=== PATIENT | female | born 1935 | race Caucasian/White ===

== ENCOUNTER 2018-02-28 08:58 | Observation (INO) ==
[2018-02-28] MEDS ORDERED: ENOXAPARIN 80 MG/0.8 ML SYRINGE SUBCUT STA (09:25)
[2018-02-28 09:28] LABS: Basophils # 0.1 10*3/uL (0.0-0.2); Basophils % 1.1 % (0.0-0.8); Eosinophils # 0.3 10*3/uL (0.0-0.87); Eosinophils % 5.4 % (0.00-10.9); Hematocrit 39.8 VOL% (35.7-47.0); Hemoglobin 13.3 GM/DL (12.0-16.0); Immature Granulocytes % 0.5 %; Immature Granulocytes Absolute 0.03 #; Lymphocytes # 1.1 10*3/uL (1.4-4.0); Lymphocytes % 18.7 % (21.3-54.2); Mean Corpuscular HGB Conc 33.4 GM/DL (32-36); Mean Corpuscular Hemoglobin 30 PG (27-34); Mean Corpuscular Volume 89.6 FL (87-102); Mean Platelet Volume 12.3 FL (9.6-12.0); Monocytes # 0.7 10*3/uL (0.11-0.8); Monocytes % 11.3 % (1.7-12.7); Neutrophils # 3.8 10*3/uL (1.4-7.4); Platelet Count 158 T/CUMM (130-400); Red Blood Count 4.44 MC/CUMM (3.8-5.5); Red Cell Distribution Width 14.3 % (9.3-17.3); White Blood Count 6.1 T/CUMM (4-12)
[2018-02-28 09:34] LABS: Partial Thromboplastin Time 22.2 SECS (0-40)
[2018-02-28 09:42] LABS: Alanine Aminotransferase 22 U/L (13-56); Albumin 3.5 G/DL (3.4-5.0); Alkaline Phosphatase 57 U/L (45-117); Aspartate Amino Transferase 14 U/L (0-37); Blood Urea Nitrogen 25 MG/DL (7-18); Calcium 10.5 MG/DL (8.5-10.1); Glucose 112 MG/DL (74-106); Potassium 3.5 MMOL/L (3.5-5.1); Sodium 143 MMOL/L (136-145); Total Protein 6.7 G/DL (6.4-8.3); Troponin I Only < 0.015 NG/ML (0.00-0.045)
[2018-02-28 10:09] LABS: Apearance,Urine CLEAR (Clear); Bilirubin,Urine Negative (Negative); Blood, Urine Negative (Negative); Glucose,Urine (UA) Negative (Negative); Ketones,Urine Negative (Negative); Nitrite,Urine Negative (Negative); Protein,Urine Negative; RBC,Urine <1 /HPF (0-4); Squamous Epithelial Cell,Urine Occasional /HPF (0-10); Urine Color Yellow (Yellow); Urine Specific Gravity 1.009 (1.001-1.035); Urine Urobilinogen < 2.0 EU/DL (0.2-1.0); WBC,Urine <1 /HPF (0-6)
[2018-02-28 10:13] LABS: Barbiturates Screen,Urine Negative (Negative); Benzodiazepines Screen,Urine Negative (Negative); Cannabinoid Screen,Urine Negative (Negative); Opiate Screen,Urine Negative (Negative); Phencyclidine Screen,Urine Negative (Negative)
[2018-02-28] MEDS ORDERED: ONDANSETRON 4 MG/2 ML VIAL IV PRN (10:44)
[2018-02-28] MEDS ORDERED: ACETAMINOPHEN 325 MG TABLET PO PRN (10:44)
[2018-02-28] MEDS: WARFARIN 5 MG TABLET PO SCH (18:03)
[2018-02-28] MEDS ORDERED: cloNIDine 0.1 MG TABLET PO SCH (21:00)
[2018-02-28] MEDS: SOTALOL 80 MG TABLET PO SCH (22:05)
[2018-02-28] MEDS: ATORVASTATIN 20 MG TABLET PO SCH (22:07)
[2018-02-28] MEDS: LOSARTAN 50 MG TABLET PO SCH (22:07)
[2018-03-01 04:39] LABS: Basophils # 0.1 10*3/uL (0.0-0.2); Basophils % 1.1 % (0.0-0.8); Eosinophils # 0.3 10*3/uL (0.0-0.87); Eosinophils % 6.6 % (0.00-10.9); Hematocrit 35.9 VOL% (35.7-47.0); Hemoglobin 11.9 GM/DL (12.0-16.0); INR 1.1; Immature Granulocytes % 0.2 %; Immature Granulocytes Absolute 0.01 #; Lymphocytes # 1.1 10*3/uL (1.4-4.0); Lymphocytes % 24.9 % (21.3-54.2); Mean Corpuscular HGB Conc 33.1 GM/DL (32-36); Mean Corpuscular Hemoglobin 30 PG (27-34); Mean Platelet Volume 12.4 FL (9.6-12.0); Monocytes # 0.7 10*3/uL (0.11-0.8); Monocytes % 15.7 % (1.7-12.7); Neutrophils # 2.3 10*3/uL (1.4-7.4); Neutrophils % 51.5 % (38.7-73.9); PT Patient Result 11.4 SECS; Platelet Count 145 T/CUMM (130-400); Red Blood Count 3.99 MC/CUMM (3.8-5.5); Red Cell Distribution Width 14.3 % (9.3-17.3); White Blood Count 4.5 T/CUMM (4-12)
[2018-03-01 05:12] LABS: Eosinophils 9 % (0-10); Hypochromasia 1+; Lymphocytes 30 % (20-55); Platelet Estimate Normal; Segmented Neutrophils 47 % (50-85); Total Cells Counted 100
[2018-03-01 05:22] LABS: Calcium 9.6 MG/DL (8.5-10.1); Osmolality,Calculated 290.7 MOS/KG (273-304); Thyroid Stimulating Hormone 1.89 uIU/ml (0.358-3.74)
[2018-03-01] MEDS ORDERED: MAGNESIUM SULF RIDER 4 GM in PREMIX 1 EACH IV PRN (07:13)
[2018-03-01] MEDS ORDERED: MAGNESIUM SULF RIDER 2 GM in PREMIX 1 EACH IV PRN (07:13)
[2018-03-01] MEDS: SOTALOL 80 MG TABLET PO SCH ×2 (09:05→21:43)
[2018-03-01] MEDS: ASPIRIN CHEW 81 MG TABLET PO SCH (09:06)
[2018-03-01] MEDS: hydroCHLOROthiazide 25 MG TABLET PO SCH (09:06)
[2018-03-01] MEDS: ATORVASTATIN 20 MG TABLET PO SCH (09:06)
[2018-03-01] MEDS: LOSARTAN 50 MG TABLET PO SCH ×2 (09:06→21:44)
[2018-03-01] MEDS: PANTOPRAZOLE 40 MG TABLET PO SCH (09:06)
[2018-03-01] MEDS: POTASSIUM CHLORIDE 20 MEQ TABLET PO PRN ×4 (09:06→15:12)
[2018-03-01] MEDS: WARFARIN 5 MG TABLET PO SCH (17:39)
[2018-03-02 05:58] LABS: Calcium 9.2 MG/DL (8.5-10.1); Osmolality,Calculated 292.7 MOS/KG (273-304)
[2018-03-02] MEDS: ATORVASTATIN 20 MG TABLET PO SCH (08:16)
[2018-03-02] MEDS: PANTOPRAZOLE 40 MG TABLET PO SCH (08:16)
[2018-03-02] MEDS: hydroCHLOROthiazide 25 MG TABLET PO SCH (08:16)
[2018-03-02] MEDS: SOTALOL 80 MG TABLET PO SCH (08:16)
[2018-03-02] MEDS: LOSARTAN 50 MG TABLET PO SCH (08:16)
[2018-03-02] MEDS: ASPIRIN CHEW 81 MG TABLET PO SCH (08:16)
[2018-03-02 11:54] VITALS: BP 137/66
[2018-03-03] MEDS ORDERED: WARFARIN 7.5 MG TABLET PO SCH (18:00)
== END 2018-03-02 12:23 | disposition home or self-care (01) ==
LOC: EDBD → EDUNIT# → N.EDINP 08:58 → N.ED 08:58 → N.2E 11:36
PROVIDERS: ADMIT Internal Medicine; ATTEND Internal Medicine

== ENCOUNTER 2019-07-07 11:14 | Observation (INO) ==
[2019-07-07 12:35] LABS: Basophils % 0.7 % (0.0-0.8); Eosinophils # 0.2 10*3/uL (0.0-0.87); Eosinophils % 3.5 % (0.00-10.9); Hemoglobin 14.4 GM/DL (12.0-16.0); Immature Granulocytes % 0.6 %; Immature Granulocytes Absolute 0.03 #; Lymphocytes # 1.3 10*3/uL (1.4-4.0); Mean Corpuscular HGB Conc 32.7 GM/DL (32-36); Mean Corpuscular Volume 91.3 FL (87-102); Monocytes % 11.5 % (1.7-12.7); Neutrophils % 59.7 % (38.7-73.9); Platelet Count 166 T/CUMM (130-400); Red Blood Count 4.82 MC/CUMM (3.8-5.5); Red Cell Distribution Width 14.2 % (9.3-17.3); White Blood Count 5.4 T/CUMM (4-12)
[2019-07-07 12:45] LABS: Partial Thromboplastin Time 33.8 SECS (20.8-36.0)
[2019-07-07 12:50] LABS: INR 2.1
[2019-07-07 12:52] LABS: PT Patient Result 22.9 SECS (9.6-12.2)
[2019-07-07 12:59] LABS: Albumin 3.6 G/DL (3.4-5.0); Bilirubin,Total 0.6 MG/DL (0.2-1.0); Calcium 9.5 MG/DL (8.5-10.1); Osmolality,Calculated 288.1 MOS/KG (273-304)
[2019-07-07] MEDS ORDERED: ACETAMINOPHEN 325 MG TABLET PO PRN (14:01)
[2019-07-07] MEDS ORDERED: ONDANSETRON 4 MG/2 ML VIAL IV PRN (14:01)
[2019-07-07] MEDS: SODIUM CHLORIDE 0.45% 1,000 ML IV SCH (15:30)
[2019-07-07] MEDS: SOTALOL 80 MG TABLET PO SCH ×2 (17:35)
[2019-07-07] MEDS: LOSARTAN 50 MG TABLET PO SCH ×2 (17:35→17:39)
[2019-07-07] MEDS: cloNIDine 0.1 MG TABLET PO SCH (17:38)
[2019-07-07] MEDS ORDERED: WARFARIN 7.5 MG TABLET PO SCH (18:00)
[2019-07-07] MEDS ORDERED: ASPIRIN CHEW 81 MG TABLET PO SCH (18:00)
[2019-07-07] MEDS: RANITIDINE 150 MG TABLET PO SCH (18:34)
[2019-07-08] MEDS: SOTALOL 80 MG TABLET PO SCH (06:51)
[2019-07-08] MEDS: cloNIDine 0.1 MG TABLET PO SCH (06:51)
[2019-07-08] MEDS: RANITIDINE 150 MG TABLET PO SCH (06:51)
[2019-07-08] MEDS: LOSARTAN 50 MG TABLET PO SCH (06:52)
[2019-07-08] MEDS: SODIUM CHLORIDE 0.45% 1,000 ML IV SCH (07:18)
[2019-07-08] MEDS ORDERED: hydroCHLOROthiazide 25 MG TABLET PO SCH (09:00)
[2019-07-08] MEDS ORDERED: MAGNESIUM GLUCONATE 500 MG TABLET PO SCH (09:00)
[2019-07-08] MEDS ORDERED: ROSUVASTATIN 20 MG TABLET PO SCH (09:00)
[2019-07-08] MEDS ORDERED: MULTIVITAMIN (CENTRUM) TABLET PO SCH (09:00)
[2019-07-08] MEDS ORDERED: LACTOBACILLUS ACIDOPHILUS/BULGARICUS CAPLET PO SCH ×2 (09:00)
[2019-07-08] MEDS ORDERED: PANTOPRAZOLE 40 MG TABLET PO SCH (09:00)
[2019-07-08 09:52] LABS: INR 1.9; PT Patient Result 20.3 SECS (9.6-12.2)
[2019-07-08 12:04] VITALS: BP 185/78
[2019-07-08] MEDS ORDERED: WARFARIN 5 MG TABLET PO SCH (18:00)
[2019-07-09] MEDS ORDERED: ROSUVASTATIN 20 MG TABLET PO SCH (09:00)
== END 2019-07-08 15:30 | disposition home or self-care (01) ==
LOC: EDUNIT# → N.EDINP 11:14 → N.ED 11:14 → N.EDINP 15:18 → N.TELEN 15:35
PROVIDERS: ADMIT Family Medicine; ATTEND Family Medicine

== ENCOUNTER 2020-09-03 02:17 | Observation (INO) ==
[2020-09-03 02:49] LABS: Basophils # 0.1 10*3/uL (0.0-0.2); Basophils % 0.9 % (0.0-0.8); Eosinophils # 0.3 10*3/uL (0.0-0.87); Eosinophils % 5.1 % (0.00-10.9); Hematocrit 39.8 VOL% (35.7-47.0); Hemoglobin 12.9 GM/DL (12.0-16.0); Immature Granulocytes % 0.6 %; Immature Granulocytes Absolute 0.04 #; Lymphocytes # 1.1 10*3/uL (1.4-4.0); Lymphocytes % 16.7 % (21.3-54.2); Mean Corpuscular HGB Conc 32.4 GM/DL (32-36); Mean Corpuscular Volume 91.1 FL (87-102); Mean Platelet Volume 10.4 FL (9.6-12.0); Monocytes % 13.1 % (1.7-12.7); Neutrophils % 63.6 % (38.7-73.9); Platelet Count 208 T/CUMM (130-400); Red Blood Count 4.37 MC/CUMM (3.8-5.5); Red Cell Distribution Width 14.1 % (9.3-17.3); White Blood Count 6.7 T/CUMM (4-12)
[2020-09-03 03:01] LABS: INR 2.5; PT Patient Result 25.6 SECS (9.8-11.9)
[2020-09-03 03:08] LABS: Bilirubin,Urine Negative (Negative); Blood, Urine Negative (Negative); Glucose,Urine (UA) Negative (Negative); Ketones,Urine Negative (Negative); Mucus,Urine Occasional /LPF (Occasional); Nitrite,Urine Negative (Negative); Protein,Urine Negative; RBC,Urine <1 /HPF (0-4); Urine Appearance CLEAR (Clear); Urine Color Colorless (Yellow); Urine Specific Gravity 1.004 (1.001-1.035); Urine Urobilinogen < 2.0 EU/DL (0.2-1.0); WBC,Urine <1 /HPF (0-6)
[2020-09-03 03:32] LABS: Albumin 3.1 G/DL (3.4-5.0); Bilirubin,Total 0.4 MG/DL (0.2-1.0); Calcium 9.2 MG/DL (8.5-10.1); Osmolality,Calculated 292.8 MOS/KG (273-304); Potassium 3.8 MMOL/L (3.5-5.1); Total Protein 6.2 G/DL (6.4-8.3)
[2020-09-03] MEDS ORDERED: ONDANSETRON 4 MG/2 ML VIAL IV PRN (05:58)
[2020-09-03] MEDS ORDERED: DEXTROSE 50% 25 GM/50 ML VIAL IV PRN (05:58)
[2020-09-03] MEDS ORDERED: GLUCAGON 1 MG VIAL IM PRN (05:58)
[2020-09-03] MEDS ORDERED: MAGNESIUM SULF RIDER 2 GM in PREMIX 1 EACH IV PRN (06:36)
[2020-09-03] MEDS ORDERED: MAGNESIUM SULF RIDER 4 GM in PREMIX 1 EACH IV PRN (06:36)
[2020-09-03] MEDS ORDERED: cloNIDine 0.1 MG TABLET PO PRN (09:24)
[2020-09-03] MEDS ORDERED: LOSARTAN 50 MG TABLET PO SCH (09:30)
[2020-09-03] MEDS ORDERED: hydroCHLOROthiazide 25 MG TABLET PO SCH (09:30)
[2020-09-03] MEDS: SOTALOL 80 MG TABLET PO SCH ×2 (10:18→20:47)
[2020-09-03] MEDS: MULTIVITAMIN (CENTRUM) TABLET PO SCH (10:18)
[2020-09-03] MEDS: MAGNESIUM GLUCONATE 500 MG TABLET PO SCH (10:18)
[2020-09-03] MEDS: ROSUVASTATIN 20 MG TABLET PO SCH (10:18)
[2020-09-03] MEDS: FAMOTIDINE 20 MG TABLET PO SCH ×2 (10:19→20:47)
[2020-09-03] MEDS: LACTOBACILLUS ACIDOPHILUS/BULGARICUS CAPLET PO SCH (10:19)
[2020-09-03] MEDS: SODIUM CHLORIDE 0.9% 1,000 ML IV SCH ×2 (10:20→20:48)
[2020-09-03] MEDS ORDERED: WARFARIN 5 MG TABLET PO SCH (18:00)
[2020-09-03] MEDS ORDERED: ASPIRIN CHEW 81 MG TABLET PO SCH (21:00)
[2020-09-04 05:51] LABS: Basophils # 0.1 10*3/uL (0.0-0.2); Basophils % 0.9 % (0.0-0.8); Eosinophils # 0.3 10*3/uL (0.0-0.87); Hematocrit 36.1 VOL% (35.7-47.0); Hemoglobin 11.5 GM/DL (12.0-16.0); Immature Granulocytes % 0.8 %; Immature Granulocytes Absolute 0.04 #; Lymphocytes # 1.3 10*3/uL (1.4-4.0); Lymphocytes % 24.1 % (21.3-54.2); Mean Corpuscular HGB Conc 31.9 GM/DL (32-36); Mean Corpuscular Volume 93.8 FL (87-102); Mean Platelet Volume 11.2 FL (9.6-12.0); Monocytes % 14.9 % (1.7-12.7); Neutrophils % 53.3 % (38.7-73.9); Platelet Count 195 T/CUMM (130-400); Red Blood Count 3.85 MC/CUMM (3.8-5.5); Red Cell Distribution Width 14.6 % (9.3-17.3); White Blood Count 5.3 T/CUMM (4-12)
[2020-09-04 06:15] LABS: Calcium 8.9 MG/DL (8.5-10.1); Osmolality,Calculated 290.7 MOS/KG (273-304); Potassium 4.1 MMOL/L (3.5-5.1)
[2020-09-04] MEDS: SODIUM CHLORIDE 0.9% 1,000 ML IV SCH (09:13)
[2020-09-04] MEDS: ROSUVASTATIN 20 MG TABLET PO SCH (09:14)
[2020-09-04] MEDS: MAGNESIUM GLUCONATE 500 MG TABLET PO SCH (09:15)
[2020-09-04] MEDS: MULTIVITAMIN (CENTRUM) TABLET PO SCH (09:15)
[2020-09-04] MEDS: LACTOBACILLUS ACIDOPHILUS/BULGARICUS CAPLET PO SCH (09:16)
[2020-09-04] MEDS: FAMOTIDINE 20 MG TABLET PO SCH (09:16)
[2020-09-04] MEDS: SOTALOL 80 MG TABLET PO SCH (09:22)
[2020-09-04 11:40] VITALS: BP 118/57
[2020-09-04] MEDS ORDERED: WARFARIN 7.5 MG TABLET PO SCH (18:00)
== END 2020-09-04 12:40 | disposition home or self-care (01) ==
LOC: EDBD → EDUNIT# → SUATTDRO → N.ED 02:17 → N.EDINP 02:17 → SUATTDRO 05:58 → N.TELEN 08:30
PROVIDERS: ADMIT Internal Medicine; ATTEND Internal Medicine

== ENCOUNTER 2022-07-06 08:01 | Inpatient (IN) ==
[2022-07-06 09:00] LABS: Basophils # 0.1 10*3/uL (0.0-0.2); Basophils % 0.9 % (0.0-0.8); Eosinophils # 0.2 10*3/uL (0.0-0.87); Eosinophils % 3.6 % (0.00-10.9); Hematocrit 39.3 VOL% (35.7-47.0); Hemoglobin 12.9 GM/DL (12.0-16.0); Immature Granulocytes % 0.4 %; Immature Granulocytes Absolute 0.03 #; Lymphocytes # 0.9 10*3/uL (1.4-4.0); Lymphocytes % 13.3 % (21.3-54.2); Mean Corpuscular HGB Conc 32.8 GM/DL (32-36); Mean Corpuscular Volume 92.9 FL (87-102); Mean Platelet Volume 11.1 FL (9.6-12.0); Monocytes # 0.6 10*3/uL (0.11-0.8); Monocytes % 8.6 % (1.7-12.7); Neutrophils % 73.2 % (38.7-73.9); Platelet Count 169 T/CUMM (130-400); Red Blood Count 4.23 MC/CUMM (3.8-5.5); Red Cell Distribution Width 14.5 % (9.3-17.3); White Blood Count 6.7 T/CUMM (4-12)
[2022-07-06 09:32] LABS: Albumin 3.6 G/DL (3.4-5.0); Bilirubin,Total 0.7 MG/DL (0.20-1.00); Calcium 10.3 MG/DL (8.5-10.1); Osmolality,Calculated 292.8 MOS/KG (273-304); Potassium 3.9 MMOL/L (3.5-5.1); Total Protein 6.7 G/DL (6.4-8.2)
[2022-07-06] MEDS ORDERED: FUROSEMIDE 40 MG/4 ML VIAL IV STA (10:04)
[2022-07-06 10:12] LABS: Hyaline Casts,Urine 1 /LPF (0-3); Mucus,Urine Occasional /LPF (Occasional); RBC,Urine 2 /HPF (0-4); Squamous Epithelial Cell,Urine Occasional /HPF (0-10)
[2022-07-06 10:14] LABS: Bilirubin,Urine Negative (Negative); Blood, Urine Trace mg/dL (Negative); Glucose,Urine (UA) Negative (Negative); Ketones,Urine Negative (Negative); Nitrite,Urine Negative (Negative); Protein,Urine Negative (Negative); Urine Appearance Clear (Clear); Urine Color Yellow (Yellow); Urine Urobilinogen 0.2 eU/dL (<2.0); Urine pH 6.5 (4.5-8.0)
[2022-07-06] MEDS ORDERED: ONDANSETRON 4 MG/2 ML VIAL IV PRN (10:40)
[2022-07-06] MEDS: cloNIDine 0.1 MG TABLET PO SCH ×2 (11:17→21:25)
[2022-07-06] MEDS: ENOXAPARIN 40 MG/0.4 ML SYRINGE SUBCUT SCH (11:17)
[2022-07-06] MEDS: PANTOPRAZOLE 40 MG TABLET PO SCH (11:17)
[2022-07-06 11:28] LABS: INR 3.6; PT Patient Result 36.6 SECS (10.1-12.1)
[2022-07-06] MEDS: ASPIRIN CHEW 81 MG TABLET PO SCH (21:24)
[2022-07-07 05:12] LABS: Risk Ratio 2.78; Thyroid Stimulating Hormone 2.24 uIU/ml (0.358-3.74); VLDL Cholesterol 18.4 MG/DL
[2022-07-07] MEDS: MAGNESIUM OXIDE 400 MG TABLET PO SCH (08:59)
[2022-07-07] MEDS: PANTOPRAZOLE 40 MG TABLET PO SCH (08:59)
[2022-07-07] MEDS: VALSARTAN 80 MG TABLET PO SCH (08:59)
[2022-07-07] MEDS: SOTALOL 80 MG TABLET PO SCH ×2 (08:59→21:25)
[2022-07-07] MEDS: FAMOTIDINE 20 MG TABLET PO SCH ×2 (08:59→21:25)
[2022-07-07] MEDS ORDERED: SOTALOL 80 MG TABLET PO SCH (09:00)
[2022-07-07 09:40] LABS: Basophils # 0.1 10*3/uL (0.0-0.2); Basophils % 0.9 % (0.0-0.8); Eosinophils # 0.2 10*3/uL (0.0-0.87); Hematocrit 37.6 VOL% (35.7-47.0); Hemoglobin 12.6 GM/DL (12.0-16.0); Immature Granulocytes % 0.2 %; Immature Granulocytes Absolute 0.01 #; Lymphocytes # 0.9 10*3/uL (1.4-4.0); Lymphocytes % 17.4 % (21.3-54.2); Mean Corpuscular HGB Conc 33.5 GM/DL (32-36); Mean Corpuscular Volume 90.6 FL (87-102); Mean Platelet Volume 10.8 FL (9.6-12.0); Monocytes # 0.7 10*3/uL (0.11-0.8); Monocytes % 13.1 % (1.7-12.7); Neutrophils % 65.4 % (38.7-73.9); Platelet Count 153 T/CUMM (130-400); Red Blood Count 4.15 MC/CUMM (3.8-5.5); Red Cell Distribution Width 14.3 % (9.3-17.3); White Blood Count 5.4 T/CUMM (4-12)
[2022-07-07 09:55] LABS: Albumin 3.2 G/DL (3.4-5.0); Bilirubin,Total 0.8 MG/DL (0.20-1.00); Calcium 9.5 MG/DL (8.5-10.1); Osmolality,Calculated 293.8 MOS/KG (273-304); Potassium 3.1 MMOL/L (3.5-5.1); Total Protein 6.3 G/DL (6.4-8.2)
[2022-07-07] MEDS ORDERED: POTASSIUM CHLORIDE 20 MEQ TABLET PO ONE (11:38)
[2022-07-07] MEDS: ENOXAPARIN 40 MG/0.4 ML SYRINGE SUBCUT SCH (11:43)
[2022-07-07] MEDS: ASPIRIN CHEW 81 MG TABLET PO SCH (21:25)
[2022-07-07] MEDS: ROSUVASTATIN 20 MG TABLET PO SCH (21:25)
[2022-07-07] MEDS: FUROSEMIDE 40 MG/4 ML VIAL IV SCH (21:27)
[2022-07-08 06:17] LABS: Basophils # 0.1 10*3/uL (0.0-0.2); Basophils % 0.9 % (0.0-0.8); Eosinophils # 0.2 10*3/uL (0.0-0.87); Eosinophils % 3.8 % (0.00-10.9); Hematocrit 38.8 VOL% (35.7-47.0); Hemoglobin 12.7 GM/DL (12.0-16.0); Immature Granulocytes % 0.3 %; Immature Granulocytes Absolute 0.02 #; Lymphocytes # 1.5 10*3/uL (1.4-4.0); Lymphocytes % 25.9 % (21.3-54.2); Mean Corpuscular HGB Conc 32.7 GM/DL (32-36); Mean Corpuscular Volume 92.4 FL (87-102); Mean Platelet Volume 11.8 FL (9.6-12.0); Monocytes # 1.1 10*3/uL (0.11-0.8); Monocytes % 18.3 % (1.7-12.7); Neutrophils % 50.8 % (38.7-73.9); Platelet Count 171 T/CUMM (130-400); Red Cell Distribution Width 14.4 % (9.3-17.3); White Blood Count 5.8 T/CUMM (4-12)
[2022-07-08 06:24] LABS: INR 3.8; PT Patient Result 37.7 SECS (10.1-12.1)
[2022-07-08 06:36] LABS: Calcium 9.3 MG/DL (8.5-10.1); Potassium 3.5 MMOL/L (3.5-5.1)
[2022-07-08 06:37] LABS: Eosinophils 2 % (0-10); Lymphocytes 24 % (20-55); Platelet Estimate Adequate; Total Cells Counted 100
[2022-07-08] MEDS: FAMOTIDINE 20 MG TABLET PO SCH ×2 (08:44→21:01)
[2022-07-08] MEDS: MAGNESIUM OXIDE 400 MG TABLET PO SCH (08:44)
[2022-07-08] MEDS: PANTOPRAZOLE 40 MG TABLET PO SCH (08:44)
[2022-07-08] MEDS: VALSARTAN 80 MG TABLET PO SCH (08:44)
[2022-07-08] MEDS: SOTALOL 80 MG TABLET PO SCH ×2 (08:44→21:00)
[2022-07-08] MEDS: FUROSEMIDE 40 MG/4 ML VIAL IV SCH ×2 (08:45→17:11)
[2022-07-08] MEDS: ASPIRIN CHEW 81 MG TABLET PO SCH (21:00)
[2022-07-08] MEDS: ROSUVASTATIN 20 MG TABLET PO SCH (21:01)
[2022-07-09 05:55] LABS: INR 2.6; PT Patient Result 27.2 SECS (10.1-12.1)
[2022-07-09] MEDS ORDERED: WARFARIN 5 MG TABLET PO SCH (09:00)
[2022-07-09] MEDS: SOTALOL 80 MG TABLET PO SCH (09:32)
[2022-07-09] MEDS: MAGNESIUM OXIDE 400 MG TABLET PO SCH (09:32)
[2022-07-09] MEDS: VALSARTAN 80 MG TABLET PO SCH (09:32)
[2022-07-09] MEDS: PANTOPRAZOLE 40 MG TABLET PO SCH (09:35)
[2022-07-09] MEDS: FAMOTIDINE 20 MG TABLET PO SCH (09:35)
[2022-07-09] MEDS: FUROSEMIDE 40 MG/4 ML VIAL IV SCH (12:12)
[2022-07-09 14:03] VITALS: BP 115/53
[2022-07-09] MEDS ORDERED: FUROSEMIDE 40 MG TABLET PO SCH (16:00)
[2022-07-11] MEDS ORDERED: WARFARIN 7.5 MG TABLET PO SCH (09:00)
== END 2022-07-09 13:40 | disposition home or self-care (01) | DRG 291 ==
LOC: N.ED 08:01 → SUATTDRO 10:40 → N.EDINP 10:40 → N.TELES 12:15
PROVIDERS: ADMIT Family Medicine; ATTEND Internal Medicine

== ENCOUNTER 2022-07-09 21:54 | Observation (INO) ==
[2022-07-09] MEDS ORDERED: hydrALAZINE 20 MG/1 ML VIAL IV PRN (22:46)
[2022-07-09] MEDS ORDERED: guaiFENesin/DM ER 600-30 MG TABLET PO PRN (22:46)
[2022-07-09] MEDS ORDERED: ONDANSETRON 4 MG/2 ML VIAL IV PRN (22:46)
[2022-07-09] MEDS ORDERED: ZALEPLON 5 MG CAPSULE PO PRN (22:46)
[2022-07-09] MEDS ORDERED: NICOTINE 21 MG/24 HR PATCH TRANSDERM PRN (22:46)
[2022-07-09] MEDS ORDERED: ALBUTEROL/IPRATROPIUM 3 ML NEB RESP TX PRN (22:46)
[2022-07-09] MEDS ORDERED: diphenhydrAMINE CAP 25 MG CAPSULE PO PRN (22:46)
[2022-07-09] MEDS ORDERED: ACETAMINOPHEN 325 MG TABLET PO PRN (22:46)
[2022-07-10 03:59] LABS: Basophils # 0.1 10*3/uL (0.0-0.2); Basophils % 0.6 % (0.0-0.8); Eosinophils # 0.2 10*3/uL (0.0-0.87); Eosinophils % 1.9 % (0.00-10.9); Hematocrit 40.9 VOL% (35.7-47.0); Hemoglobin 13.6 GM/DL (12.0-16.0); Immature Granulocytes % 0.4 %; Immature Granulocytes Absolute 0.04 #; Lymphocytes # 1.6 10*3/uL (1.4-4.0); Lymphocytes % 15.8 % (21.3-54.2); Mean Corpuscular HGB Conc 33.3 GM/DL (32-36); Mean Corpuscular Volume 89.1 FL (87-102); Mean Platelet Volume 11.6 FL (9.6-12.0); Monocytes # 1.2 10*3/uL (0.11-0.8); Monocytes % 12.3 % (1.7-12.7); Platelet Count 191 T/CUMM (130-400); Red Blood Count 4.59 MC/CUMM (3.8-5.5); Red Cell Distribution Width 14.4 % (9.3-17.3); White Blood Count 10.1 T/CUMM (4-12)
[2022-07-10 04:30] LABS: Calcium 8.9 MG/DL (8.5-10.1); Osmolality,Calculated 296.1 MOS/KG (273-304); Potassium 3.7 MMOL/L (3.5-5.1)
[2022-07-10] MEDS ORDERED: ROSUVASTATIN 20 MG TABLET PO SCH (09:00)
[2022-07-10] MEDS: PANTOPRAZOLE 40 MG TABLET PO SCH (09:13)
[2022-07-10 09:23] LABS: Bacteria,Urine Occasional /HPF (Few); Bilirubin,Urine Negative (Negative); Blood, Urine Negative (Negative); Glucose,Urine (UA) Negative (Negative); Hyaline Casts,Urine 3 /LPF (0-3); Ketones,Urine Negative (Negative); Mucus,Urine Occasional /LPF (Occasional); Nitrite,Urine Negative (Negative); Protein,Urine Negative (Negative); RBC,Urine 1 /HPF (0-4); Squamous Epithelial Cell,Urine Occasional /HPF (0-10); Urine Appearance Clear (Clear); Urine Color Yellow (Yellow); Urine Specific Gravity 1.015 (1.001-1.035); Urine Urobilinogen 0.2 eU/dL (<2.0); Urine pH 5.5 (4.5-8.0)
[2022-07-10] MEDS: VALSARTAN 80 MG TABLET PO SCH (11:55)
[2022-07-10] MEDS ORDERED: WARFARIN 7.5 MG TABLET PO SCH (18:00)
[2022-07-10] MEDS: SOTALOL 80 MG TABLET PO SCH (20:58)
[2022-07-10] MEDS: ASPIRIN CHEW 81 MG TABLET PO SCH (20:58)
[2022-07-11 04:38] LABS: Basophils % 0.5 % (0.0-0.8); Eosinophils # 0.2 10*3/uL (0.0-0.87); Eosinophils % 3.2 % (0.00-10.9); Hematocrit 38.3 VOL% (35.7-47.0); Hemoglobin 12.5 GM/DL (12.0-16.0); Immature Granulocytes % 0.3 %; Immature Granulocytes Absolute 0.02 #; Lymphocytes # 1.6 10*3/uL (1.4-4.0); Lymphocytes % 21.7 % (21.3-54.2); Mean Corpuscular HGB Conc 32.6 GM/DL (32-36); Mean Corpuscular Volume 91.8 FL (87-102); Mean Platelet Volume 11.7 FL (9.6-12.0); Monocytes # 1.2 10*3/uL (0.11-0.8); Monocytes % 16.6 % (1.7-12.7); Neutrophils % 57.7 % (38.7-73.9); Platelet Count 167 T/CUMM (130-400); Red Blood Count 4.17 MC/CUMM (3.8-5.5); Red Cell Distribution Width 14.5 % (9.3-17.3); White Blood Count 7.5 T/CUMM (4-12)
[2022-07-11 04:56] LABS: Potassium 3.6 MMOL/L (3.5-5.1)
[2022-07-11 05:23] LABS: Eosinophils 3 % (0-10); Lymphocytes 29 % (20-55); Platelet Estimate Adequate; Total Cells Counted 100
[2022-07-11 06:23] LABS: INR 3.3; PT Patient Result 33.5 SECS (10.1-12.1)
[2022-07-11] MEDS: FUROSEMIDE 40 MG TABLET PO SCH (09:12)
[2022-07-11] MEDS: MULTIVITAMIN (CENTRUM) TABLET PO SCH (09:12)
[2022-07-11] MEDS: PANTOPRAZOLE 40 MG TABLET PO SCH (09:12)
[2022-07-11] MEDS: BACILLUS COAGULANS CAPLET PO SCH (09:13)
[2022-07-11] MEDS: VALSARTAN 80 MG TABLET PO SCH (09:13)
[2022-07-11] MEDS: SOTALOL 80 MG TABLET PO SCH ×2 (09:14→21:30)
[2022-07-11] MEDS: MAGNESIUM CHLORIDE 64 MG TABLET PO SCH (09:14)
[2022-07-11] MEDS ORDERED: WARFARIN 7.5 MG TABLET PO SCH (18:00)
[2022-07-11] MEDS ORDERED: WARFARIN 5 MG TABLET PO SCH (18:00)
[2022-07-11] MEDS: ASPIRIN CHEW 81 MG TABLET PO SCH (21:30)
[2022-07-12 05:10] LABS: Basophils # 0.1 10*3/uL (0.0-0.2); Basophils % 0.9 % (0.0-0.8); Eosinophils # 0.4 10*3/uL (0.0-0.87); Eosinophils % 4.3 % (0.00-10.9); Hematocrit 38.7 VOL% (35.7-47.0); Hemoglobin 12.9 GM/DL (12.0-16.0); Immature Granulocytes % 0.5 %; Immature Granulocytes Absolute 0.04 #; Lymphocytes # 1.6 10*3/uL (1.4-4.0); Lymphocytes % 20.1 % (21.3-54.2); Mean Corpuscular HGB Conc 33.3 GM/DL (32-36); Mean Corpuscular Volume 90.2 FL (87-102); Mean Platelet Volume 11.5 FL (9.6-12.0); Monocytes # 1.3 10*3/uL (0.11-0.8); Monocytes % 15.9 % (1.7-12.7); Neutrophils % 58.3 % (38.7-73.9); Platelet Count 166 T/CUMM (130-400); Red Blood Count 4.29 MC/CUMM (3.8-5.5); Red Cell Distribution Width 14.3 % (9.3-17.3); White Blood Count 8.2 T/CUMM (4-12)
[2022-07-12 05:22] LABS: INR 3.2; PT Patient Result 32.4 SECS (10.1-12.1)
[2022-07-12 05:25] LABS: Calcium 9.7 MG/DL (8.5-10.1); Osmolality,Calculated 291.4 MOS/KG (273-304); Potassium 3.4 MMOL/L (3.5-5.1)
[2022-07-12 05:53] LABS: Eosinophils 3 % (0-10); Lymphocytes 21 % (20-55); Platelet Estimate Adequate; Total Cells Counted 100
[2022-07-12] MEDS ORDERED: POTASSIUM CHLORIDE 20 MEQ TABLET PO ONE (07:19)
[2022-07-12] MEDS: PANTOPRAZOLE 40 MG TABLET PO SCH (08:51)
[2022-07-12] MEDS: BACILLUS COAGULANS CAPLET PO SCH (08:51)
[2022-07-12] MEDS: MAGNESIUM CHLORIDE 64 MG TABLET PO SCH (08:51)
[2022-07-12] MEDS: VALSARTAN 80 MG TABLET PO SCH (08:52)
[2022-07-12] MEDS: FUROSEMIDE 40 MG TABLET PO SCH (08:52)
[2022-07-12] MEDS: SOTALOL 80 MG TABLET PO SCH (08:52)
[2022-07-12] MEDS: MULTIVITAMIN (CENTRUM) TABLET PO SCH (08:55)
[2022-07-12 11:30] VITALS: BP 122/50
[2022-07-12] MEDS ORDERED: WARFARIN 5 MG TABLET PO SCH (18:00)
== END 2022-07-12 14:25 | disposition home or self-care (01) ==
LOC: N.EDINP 21:54 → N.ED 21:54 → SUATTDRO 07-10 00:01 → N.TELES 07-10 16:51
PROVIDERS: ADMIT Internal Medicine; ATTEND Internal Medicine